=== PATIENT | male | born 1940 | race Caucasian/White ===

== ENCOUNTER → 2017-08-07 | Outpatient (CLI) | payer OTHER ==
[~2017-08-07] MED LIST: ASPI325 PO; ASPI81EC PO; CLIN300 PO; CYAN1000 PO; DOXY100 PO; GLUCHON PO; GLUCOSAMINE CH PO; MULVITSO PO; Multivitamin1 EAC1 PO; TOCO400 PO
== END | disposition home or self-care (01) ==
LOC: PLD 10:10 → LAB SHORT 10:10
DX: D48.5 Neoplasm of uncertain behavior of skin (principal)
CPT/HCPCS: 88305